=== PATIENT | male | born 1965 | race Caucasian/White ===

== ENCOUNTER 2023-12-07 22:43 | Emergency (ER) | payer BC ==
[~2023-12-07] VITALS: Ht 188 cm; Wt 165.0 kg
[2023-12-07 22:59] VITALS: O2SAT 98
[2023-12-08] MEDS ORDERED: TETANUS, DIPHTHERIA, PERTUSSIS VAC/PF 0.5ML (>10YR OLD) IM ONE (01:30)
[2023-12-08] MEDS: LIDOCAINE HCL/PF 1% 10 MG/ML 5ML VIAL INFIL ONE (01:30)
[2023-12-08] MEDS ORDERED: BACITRACIN ZINC OINT UDPKT TOP ONE (01:30)
[2023-12-08] MEDS ORDERED: AMOX1TAB16 MT (02:42)
[2023-12-08] MEDS: BACITRACIN ZINC OINT UDPKT TOP NR (04:00)
[2023-12-08 04:04] VITALS: BP 128/76; PULSE 57; RESP 16; TEMP 97.3
[2023-12-08] MEDS: TETANUS, DIPHTHERIA, PERTUSSIS VAC/PF 0.5ML (>10YR OLD) IM ONE (04:05)
== END 2023-12-08 04:11 | disposition home or self-care (01) ==
LOC: ER 22:43
DX: S61.431A Puncture wound without foreign body of right hand, initial encounter (principal); Z98.890 Other specified postprocedural states; W54.0XXA Bitten by dog, initial encounter; Y93.89 Activity, other specified; Y92.89 Other specified places as the place of occurrence of the external cause; Y99.8 Other external cause status
CPT/HCPCS: 99283; 90715; 12002; 90471; J3490